=== PATIENT | male | born 1980 ===

== ENCOUNTER 2017-03-07 10:50 | Emergency (ER) | payer SELFPAY ==
[2017-03-07 11:17] VITALS: BP 138/82
--- NOTE | 2017-03-07 11:47 | UC ---
FLU HPI - HPI Summary HPI Summary: 36M presents with fever, cough since Friday. He admits to nausea and stomach ache that has resolved. He admits to SOB. He denies any chest pain. He denies any sinus congestion but admits to mild sore throat. He denies any ear pain. He took cold medication with relief. - History of Current Complaint Chief Complaint: UCRespiratory Stated Complaint: CONGESTION,COUGH,HEADACHE Pain Intensity: 0 - Allergy/Home Medications Allergies/Adverse Reactions: Allergies Allergy/AdvReac Type Severity Reaction Status Date / Time Penicillins Allergy Unknown Verified 03/07/17 11:11 Reaction Details Home Medications: Home Medications Albuterol HFA INHALER* [Ventolin HFA Inhaler*] 2 puff QAM 03/07/17 [History Confirmed 03/07/17] PMH/Surg Hx/FS Hx/Imm Hx Endocrine History: Other Other Endocrine History: no DM Respiratory History: Other Other Respiratory History: no asthma - Surgical History Surgical History: None - Family History Known Family History: Negative: Respiratory Disease - Social History Alcohol Use: None Substance Use Type: None Smoking Status (MU): Never Smoked Tobacco Review of Systems Constitutional: Fever ENT: Nasal Discharge Respiratory: Cough Cardiovascular: Negative All Other Systems Reviewed And Are Negative: Yes Physical Exam Triage Information Reviewed: Yes Appearance: Well-Appearing Vital Signs: Initial Vital Signs Temp 99.1 F 03/07/17 11:12 Pulse 91 03/07/17 11:12 Resp 16 03/07/17 11:12 BP 138/82 03/07/17 11:12 Pulse Ox 97 03/07/17 11:12 Vital Signs Reviewed: Yes Eyes: Positive: Conjunctiva Clear ENT: Positive: Normal ENT inspection, Pharyngeal erythema, TMs normal, Uvula midline, Other - soft palate symmetric. Negative: Tonsillar swelling, Tonsillar exudate, Trismus, Muffled voice Neck: Positive: Supple, Nontender, No Lymphadenopathy Respiratory: Positive: Lungs clear, Normal breath sounds Cardiovascular: Positive: RRR Abdomen Description: Positive: Nontender, Soft Bowel Sounds: Positive: Present Musculoskeletal Exam: Normal Neurological Exam: Normal Psychological Exam: Normal Skin Exam: Normal Flu Course/Dx - Course Course Of Treatment: 36M presents with fever, cough since Friday. He admits to nausea and stomach ache that has resolved. He admits to SOB. He denies any chest pain. He denies any sinus congestion but admits to mild sore throat. He denies any ear pain. He took cold medication with relief. on exam lungs CTA. flu b pos. will treat with inhaler and zofran as patient is out of tamiflu window. will have follow up with primary about elevated blood pressure. patient understand and agrees with plan. - Differential Dx/Diagnosis Differential Diagnosis/HQI/PQRI: Influenza, Pneumonia, Upper Respiratory Infection Provider Diagnoses: influenza b, elevated blood pressure Discharge - Discharge Plan Condition: Good Disposition: HOME Prescriptions: Albuterol HFA INHALER* [Ventolin HFA Inhaler*] 1 puff INH Q4H PRN #1 mdi PRN Reason: Cough Benzonatate CAP* [Tessalon 100 MG CAP*] 100 mg PO TID #21 cap Ondansetron ODT TAB* [Zofran 4 MG Odt TAB*] 4 mg PO Q6H PRN #16 tab.odt PRN Reason: Nausea Patient Education Materials: Influenza (ED) Forms: *Work Release Referrals: Non Staff,Doctor [Primary Care Provider] - Additional Instructions: Use Tessalon three times a day for cough Use inhaler one puff every 4 hours for cough as needed Use zofran every 6 hours for nausea Use humidifier or place warm bowls of water around the room for cough Use Tylenol and ibuprofen every 6 hours for fever/pain Return to ED if develop any new or worsening symptoms
== END 2017-03-07 12:21 | disposition home or self-care (01) ==
LOC: UCCORT 10:50
DX: J10.1 Influenza due to other identified influenza virus with other respiratory manifestations (principal); R03.0 Elevated blood-pressure reading, without diagnosis of hypertension
CPT/HCPCS: 87502; 99202; G0463